=== PATIENT | female | born 1965 | race Caucasian/White ===

== ENCOUNTER → 2016-12-21 | Outpatient (CLI) | payer OTHER ==
[~2016-12-21] MED LIST: ALPR0.25 PO; ALPR0.5T7 PO; BETA15CR37 TOP; CHLO1CAP PO; CHOL50003 PO; CPR500T PO; DEXL60CA PO; DIAZ2TAB2 PO; DIPH25CA79 PO; DIPH25TA82 PO; DZPM2T PO; Diazepam PO; ESTR1TAB24 PO; ESTRADIOL IM; FAMO20TA5 PO; FLUC100T PO; FLUC200T45 PO; FOLI-88 PO; HYOS0.1283 SL; IBUP-2055 PO; LACT1CAP66 PO; LORA-407 PO; LORA0.5T PO; MTP25TSR PO; OMEP40CA36 PO; OMEPRAZOLE; ONDA8TAB9 PO; PARO10TA3 PO; PARO20TA4 PO; PARO20TA5 PO; PARO40TA PO; PNT40TEC PO; PRX10T PO; Paroxetine Hcl PO; Propranolol Hcl PO; QUET25TA PO; SCR1T1 PO; SUCR1TAB PO; TERC20CR VG; TERC45CR VG; [UNRECOGNIZED DRUG - OTHER] PO; vancomycin PO
--- OUTSIDE RECORDS SUMMARY | 2016-12-21 16:35 | XMS REPORT | Continuity of Care Document ---
Author Author [facility] Organization [facility] Address Unknown Phone Unavailable Allergies Active Description Code Type Severity Reaction Onset Reported/Identified Relationship to Patient Clinical Status Yes codeine [id number] Drug Allergy Unknown N/A 12/19/2008 Yes levofloxacin [id number] Drug Allergy Unknown N/A 12/19/2008 Yes Penicillins [id number] Drug Allergy Unknown N/A 12/19/2008 Yes metoclopramide [id number] Drug Allergy Unknown N/A 05/14/2014 Yes codeine [id number] Drug Allergy Unknown PT HAS RECEIVED 09/29/2016 Medications Problems Date Dx Coded Attending Type Code Diagnosis Diagnosed By 02/01/2011 Ot 401.9 HYPERTENSION NOS 02/01/2011 Ot 781.0 ABN INVOLUN MOVEMENT NEC 03/22/2014 BE GREEN MD Ot 723.1 CERVICALGIA 03/22/2014 BE GREEN MD Ot V57.1 PHYSICAL THERAPY NEC 04/22/2014 BE GREEN MD Ot 785.0 TACHYCARDIA NOS 05/16/2014 ROGELIO DIEGO DO Ot 300.00 ANXIETY STATE NOS 05/16/2014 ROGELIO DIEGO DO Ot 401.9 HYPERTENSION NOS 05/16/2014 ROGELIO DIEGO DO Ot 530.10 ESOPHAGITIS NOS 05/16/2014 ROGELIO DIEGO DO Ot 535.50 UNSP GASTRITIS GASTRODUODENITIS W/O ME 05/16/2014 ROGELIO DIEGO DO Ot 535.60 DUODENITIS, WITHOUT MENTION OF HEMORRHAG 05/16/2014 ROGELIO DIEGO DO Ot 599.0 URIN TRACT INFECTION NOS 05/16/2014 ROGELIO DIEGO DO Ot V58.69 OTH MED,LT,CURRENT USE 10/01/2014 Ot 564.1 10/01/2014 Ot V76.12 10/01/2014 Ot V70.0 10/01/2014 Ot 268.9 10/01/2014 Ot 281.0 10/01/2014 Ot 300.4 10/01/2014 Ot 627.2 10/01/2014 Ot V76.12 10/01/2014 Ot V76.12 10/01/2014 Ot 789.00 10/01/2014 Ot 719.41 10/01/2014 Ot 959.2 10/01/2014 Ot E000.8 10/01/2014 Ot E849.0 10/01/2014 Ot E888.9 10/01/2014 Ot 840.4 10/01/2014 Ot E000.8 10/01/2014 Ot E849.0 10/01/2014 Ot E928.9 10/01/2014 JASMIN HUNG, CATARINA Siegel Ot V76.12 10/01/2014 NORMA HUNG, BE Juarez Ot 793.80 10/01/2014 NORMA HUNG, BE Juarez Ot 786.50 10/01/2014 NORMA HUNG, BE Juarez Ot 786.05 10/01/2014 [facility] Ot 786.05 10/01/2014 NORMA HUNG, EB Juarez Ot 721.0 10/01/2014 Ot 785.0 10/01/2014 CATARINA CASTELLANOS MD Ot V76.12 10/15/2014 INDRA DUNAWAY MD Ot 698.9 10/15/2014 INDRA DUNAWAY MD Ot 782.62 10/15/2014 INDRA DUNAWAY MD Ot 787.01 10/15/2014 INDRA DUNAWAY MD Ot 787.91 10/17/2014 INDRA DUNAWAY MD Ot 698.9 10/17/2014 INDRA DUNAWAY MD Ot 782.62 10/17/2014 INRDA DUNAWAY MD Ot 787.01 10/17/2014 INDRA DUNAWAY MD Ot 787.91 10/22/2014 CATARINA CASTELLANOS MD Ot 698.9 10/29/2014 INDRA DUNAWAY MD Ot 698.9 10/29/2014 INDRA DUNAWAY MD Ot 782.62 10/29/2014 INDRA DUNAWAY MD H Ot 787.01 10/29/2014 GUME HUNG, INDRA Renner Ot 787.91 11/08/2014 GUME HUNG, INDRA Renner Ot 698.9 11/08/2014 GUME HUNG, INDRA Renner Ot 782.62 11/08/2014 GUME HUNG, INDRA Renner Ot 787.01 11/08/2014 GUME HUNG, INDRA Renner Ot 787.91 01/09/2015 GUME HUNG, INDRA Renner Ot 698.9 PRURITIC DISORDER NOS 01/09/2015 GUME HUNG, INDRA Renner Ot 782.62 FLUSHING 01/09/2015 GUME HUNG, INDRA Renner Ot 787.01 NAUSEA WITH VOMITING 01/09/2015 GUME HUNG, INDRA Renner Ot 787.91 DIARRHEA 01/22/2015 SHEKHAR HUNG, TANIA Padilla Ot 625.9 01/22/2015 SHEKHAR HUNG, TANIA Padilla Ot 698.9 01/22/2015 SHEKHAR HUNG, TANIA Padilla Ot 782.62 01/22/2015 SHEKHAR HUNG, TANIA Padilla Ot 789.00 02/05/2015 SHEKHAR HUNG, TANIA Padlila Ot 625.9 02/05/2015 SHEKHAR HUNG, TANIA Padilla Ot 698.9 02/05/2015 SHEKHAR HUNG, TANIA Padilla Ot 782.62 02/05/2015 SHEKHAR HUNG, TANIA Padilla Ot 789.00 02/05/2015 Ot 625.9 02/05/2015 Ot 789.00 03/27/2015 Ot V76.12 03/27/2015 Ot V70.0 03/27/2015 Ot 268.9 03/27/2015 Ot 281.0 03/27/2015 Ot 300.4 03/27/2015 Ot 627.2 03/27/2015 Ot V76.12 03/27/2015 Ot V76.12 03/27/2015 Ot 789.00 03/27/2015 Ot 719.41 03/27/2015 Ot 959.2 03/27/2015 Ot E000.8 03/27/2015 Ot E849.0 03/27/2015 Ot E888.9 03/27/2015 Ot 840.4 03/27/2015 Ot E000.8 03/27/2015 Ot E849.0 03/27/2015 Ot E928.9 03/27/2015 JASMIN HUNG, CATARINA Robbin Ot V76.12 03/27/2015 NORMA HUNG, BE Juarez Ot 793.80 03/27/2015 NORMA HUNG, BE Juarez Ot 786.50 03/27/2015 NORMA HUNG, BE Juarez Ot 786.05 03/27/2015 MICHAEL THOMASRJ Ot 786.05 03/27/2015 NORMA HUNG, BE Juarez Ot 721.0 03/27/2015 Ot 785.0 03/27/2015 JASMIN HUNG, CATARINA Robbin Ot V76.12 03/27/2015 JASMIN HUNG, CATARINA Siegel Ot 698.9 03/27/2015 Ot 698.9 03/27/2015 Ot 782.62 03/27/2015 Ot 787.01 03/27/2015 Ot 787.91 03/27/2015 SHEKHAR HUNG, TANIA A Ot 625.9 03/27/2015 SHEKHAR HUNG, TANIA A Ot 698.9 03/27/2015 SHEKHAR HUNG, TANIA A Ot 782.62 03/27/2015 SHEKHAR HUNG, TANIA Padilla Ot 789.00 03/27/2015 Ot 625.9 03/27/2015 Ot 789.00 03/28/2015 SHEKHAR HUGN, TANIA Padilla Ot 721.0 03/28/2015 SHEKHAR HUNG, TANIA A Ot 784.0 03/28/2015 SHEKHAR HUNG, TANIA A Ot 959.01 03/28/2015 SHEKHAR HUNG, TANIA A Ot 959.09 03/28/2015 SHEKHAR HUNG, TANIA A Ot E928.9 03/28/2015 SHEKHAR HUNG, TANIA A Ot 721.0 03/28/2015 SHEKHAR HUNG, TANIA A Ot 784.0 03/28/2015 SHEKHAR HUNG, TANIA Padilla Ot 959.01 03/28/2015 SHEKHAR HUNG, TANIA A Ot 959.09 03/28/2015 SHEKHAR HUNG, TANIA A Ot E928.9 03/28/2015 SHEKHAR HUNG, TANIA A Ot 721.0 03/28/2015 SHEKHAR HUNG, TANIA A Ot 784.0 03/28/2015 SHEKHAR HUNG, TANIA A Ot 959.01 03/28/2015 SHEKHAR HUNG, TANIA A Ot 959.09 03/28/2015 SHEKHAR HUNG, TANIA A Ot E928.9 03/28/2015 SHEKHAR HUNG, TANIA A Ot 721.0 03/28/2015 SHEKHAR HUNG, TANIA A Ot 784.0 03/28/2015 SHEKHAR HUNG, TANIA A Ot 959.01 03/28/2015 SHEKHAR HUNG, TANIA A Ot 959.09 03/28/2015 SHEKHAR HUNG, TANIA A Ot E928.9 04/25/2015 SHEKHAR HUNG, TANIA A Ot 721.0 04/25/2015 SHEKHAR HUNG, TANIA A Ot 784.0 04/25/2015 SHEKHAR HUNG, TANIA A Ot 959.01 04/25/2015 SHEKHAR HUNG, TANIA A Ot 959.09 04/25/2015 SHEKHAR HUNG, TANIA A Ot E928.9 05/16/2015 SHEKHAR HUNG, TANIA A Ot 300.00 05/16/2015 SHEKHAR HUNG, TANIA A Ot 311 05/16/2015 SHEKHAR HUNG, TANIA A Ot 530.81 05/16/2015 SHEKHAR HUNG, TANIA A Ot 558.9 05/16/2015 SHEKHAR HUNG, TANIA A Ot 564.00 05/16/2015 SHEKHAR HUNG, TANIA A Ot 794.5 05/16/2015 SHEKHAR HUNG, TANIA A Ot V12.72 05/16/2015 SHEKHAR HUNG, TANIA A Ot V15.82 05/16/2015 SHEKHAR HUNG, TANIA A Ot V16.3 05/17/2015 SHEKHAR HUNG, TANIA A Ot 300.00 05/17/2015 SHEKHAR HUNG, ATNIA A Ot 311 05/17/2015 SHEKHAR HUNG, TANIA A Ot 530.81 05/17/2015 SHEKHAR HUNG, TANIA A Ot 558.9 05/17/2015 SHEKHAR HUNG, TANIA A Ot 564.00 05/17/2015 SHEKHAR HUNG, TANIA A Ot 794.5 05/17/2015 SHEKHAR HUNG, TANIA A Ot V12.72 05/17/2015 SHEKHAR HUNG, TANIA A Ot V15.82 05/17/2015 SHEKHAR HUNG, TANIA Padilla Ot V16.3 05/18/2015 SHEKHAR HUNG, TANIA Padilla Ot 300.00 05/18/2015 SHEKHAR HUNG, TANIA Padilla Ot 311 05/18/2015 SHEKHAR HUNG, TANIA Padilla Ot 530.81 05/18/2015 SHEKHAR HUNG, TANIA Padilla Ot 558.9 05/18/2015 SHEKHAR HUNG, TANIA Padilla Ot 564.00 05/18/2015 SHEKHAR HUNG, TANIA Padilla Ot 794.5 05/18/2015 SHEKHAR HUNG, TANIA Padilla Ot V12.72 05/18/2015 SHEKHAR HUNG, TANIA Padilla Ot V15.82 05/18/2015 SHEKHAR HUNG, TANIA Padilla Ot V16.3 05/18/2015 SHEKHAR HUNG, TANIA Padilla Ot 300.00 05/18/2015 SHEKHAR HUNG, TANIA Padilla Ot 300.01 PANIC DISORDER WITHOUT AGORAPHOBIA 05/18/2015 SHEKHAR HUNG, TANIA Padilla Ot 311 DEPRESSIVE DISORDER NEC 05/18/2015 SHEKHAR HUNG, TANIA Padilla Ot 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 05/18/2015 SHEKHAR HUNG, TANIA Padilla Ot 530.81 ESOPHAGEAL REFLUX 05/18/2015 SHEKHAR HUNG, TANIA Padilla Ot 536.8 STOMACH FUNCTION DIS NEC 05/18/2015 SHEKHAR HUNG, TANIA Padilla Ot 558.9 NONINF GASTROENTERIT NEC 05/18/2015 SHEKHAR HUNG, TANIA Padilla Ot 564.00 UNSPEC CONSTIPATION 05/18/2015 SHEKHAR HUNG, TANIA Padilla Ot 616.10 VAGINITIS NOS 05/18/2015 SHEKHAR HUNG, TANIA Padilla Ot 794.5 ABN THYROID FUNCT STUDY 05/18/2015 SHEKHAR HUNG, TANIA Padilla Ot V12.72 PERSONAL HISTORY OF COLONIC POLYPS 05/18/2015 SHEKHAR HUNG, TANIA Padilla Ot V15.82 HISTORY OF TOBACCO USE 05/18/2015 SHEKHAR HUNG, TANIA Padilla Ot V16.0 FAMILY HX-GI MALIGNANCY 05/18/2015 SHEKHAR HUNG, TANIA Padilla Ot V16.3 07/22/2015 Ot 268.9 07/22/2015 Ot 281.0 07/22/2015 Ot 300.4 07/22/2015 Ot 627.2 07/22/2015 Ot V76.12 07/22/2015 Ot V76.12 07/22/2015 Ot 789.00 07/22/2015 Ot 719.41 07/22/2015 Ot 959.2 07/22/2015 Ot E000.8 07/22/2015 Ot E849.0 07/22/2015 Ot E888.9 07/22/2015 Ot 840.4 07/22/2015 Ot E000.8 07/22/2015 Ot E849.0 07/22/2015 Ot E928.9 07/22/2015 JASMIN HUNG, CATARINA Siegel Ot V76.12 07/22/2015 NORMA HUNG, BE Juarez Ot 793.80 07/22/2015 NORMA HUNG, BE Juarez Ot 786.50 07/22/2015 NORMA HUNG, BE Juarez Ot 786.05 07/22/2015 RJ RODRIGUEZ DO Ot 786.05 07/22/2015 NORMA HUNG, BE Juarez Ot 721.0 07/22/2015 Ot 785.0 07/22/2015 JASMIN HUNG, CATARINA Siegel Ot V76.12 07/22/2015 JASMIN HUNG, CATARINA Siegel Ot 698.9 07/22/2015 Ot 698.9 07/22/2015 Ot 782.62 07/22/2015 Ot 787.01 07/22/2015 Ot 787.91 07/22/2015 SHEKHAR HUNG, TANIA Padilla Ot 625.9 07/22/2015 SHEKHAR HUNG, TANIA Padilla Ot 698.9 07/22/2015 SHEKHAR HUNG, TANIA A Ot 782.62 07/22/2015 SHEKHAR HUNG, TANIA A Ot 789.00 07/22/2015 Ot 625.9 07/22/2015 Ot 789.00 07/22/2015 SHEKHAR HUNG, TANIA Padilla Ot 721.0 07/22/2015 SHEKHAR HUNG, TANIA Padilla Ot 784.0 07/22/2015 SHEKHAR HUNG, TANIA Padilla Ot 959.01 07/22/2015 SHEKHAR HUNG, TANIA Padilla Ot 959.09 07/22/2015 SHEKHAR HUNG, TANIA Padilla Ot E928.9 07/29/2015 SHEKHAR HUNG, TANIA Padilla Ot 276.51 07/29/2015 SHEKHAR UHNG, TANIA A Ot 300.00 07/29/2015 SHEKHAR HUNG, TANIA A Ot 311 07/29/2015 SHEKHAR HUNG, TANIA A Ot 530.81 07/29/2015 SHEKHAR HUNG, TANIA A Ot 558.9 07/29/2015 SHEKHAR HUNG, TANIA A Ot 698.9 07/30/2015 SHEKHAR HUNG, TANIA A Ot 276.51 07/30/2015 SHEKHAR HUNG, TANIA A Ot 300.00 07/30/2015 SHEKHAR HUNG, TANIA A Ot 311 07/30/2015 SHEKHAR HUNG, TANIA A Ot 530.81 07/30/2015 SHEKHAR HUNG, TANIA A Ot 558.9 07/30/2015 SHEKHAR HUNG, TANIA A Ot 698.9 07/31/2015 SHEKHAR HUNG, TANIA A Ot 276.51 07/31/2015 SHEKHAR HUNG, TANIA A Ot 300.00 07/31/2015 SHEKHAR HUNG, TANIA A Ot 311 07/31/2015 SHEKHAR HUNG, TANIA A Ot 530.81 07/31/2015 SHEKHAR HUNG, TANIA A Ot 558.9 07/31/2015 SHEKHAR HUNG, TANIA A Ot 698.9 08/01/2015 SHEKHAR HUNG, TANIA A Ot 276.51 08/01/2015 SHEKHAR HUNG, TANIA A Ot 300.00 08/01/2015 SHEKHAR HUNG, TANIA A Ot 311 08/01/2015 SHEKHAR HUNG, TANIA A Ot 530.81 08/01/2015 SHEKHAR HUNG, TANIA A Ot 558.9 08/01/2015 SHEKHAR HUNG, TANIA A Ot 698.9 08/06/2015 CATARINA CASTELLANOS MD Ot V76.12 08/07/2015 SHEKHAR HUNG, TANIA A Ot A04.7 ENTEROCOLITIS DUE TO CLOSTRIDIUM DIFFICI 08/07/2015 SHEKHAR HUNG, TANIA A Ot E86.0 DEHYDRATION 08/07/2015 SHEKHAR HUNG, TANIA A Ot F32.9 MAJOR DEPRESSIVE DISORDER, SINGLE EPISOD 08/07/2015 SHEKHAR HUNG, TANIA A Ot F41.9 ANXIETY DISORDER, UNSPECIFIED 08/07/2015 SHEKHAR HUNG, TANIA A Ot K21.9 GASTRO-ESOPHAGEAL REFLUX DISEASE WITHOUT 08/07/2015 SHEKHAR HUNG, TANIA Padilla Ot K56.60 UNSPECIFIED INTESTINAL OBSTRUCTION 08/07/2015 SHEKHAR HUNG, TANIA Padilla Ot L29.9 PRURITUS, UNSPECIFIED 08/21/2015 YANELI HUNG, SANCHEZ Padilla Ot R19.7 08/23/2015 SANCHEZ GROVES MD Ot R19.7 09/06/2015 SHEKHAR HUNG, TANIA Padilla Ot I82.409 09/06/2015 TANIA CORRIGAN MD Ot I82.409 10/29/2015 SHEKHAR HUNG, TANIA Padilla Ot E04.1 10/29/2015 SHEKHAR HUNG, TANIA Padilla Ot R94.6 11/11/2015 Ot V76.12 11/11/2015 Ot V76.12 11/11/2015 Ot 789.00 11/11/2015 Ot 719.41 11/11/2015 Ot 959.2 11/11/2015 Ot E000.8 11/11/2015 Ot E849.0 11/11/2015 Ot E888.9 11/11/2015 Ot 840.4 11/11/2015 Ot E000.8 11/11/2015 Ot E849.0 11/11/2015 Ot E928.9 11/11/2015 JASMIN HUNG, CATARINA Siegel Ot V76.12 11/11/2015 NORMA HUNG, BE Juarez Ot 793.80 11/11/2015 NORMA HUNG, BE Juarez Ot 786.50 11/11/2015 NORMA HUNG, BE Juarez Ot 786.05 11/11/2015 [facility] Ot 786.05 11/11/2015 NORMA HUNG, BE Juarez Ot 721.0 11/11/2015 Ot 785.0 11/11/2015 JASMIN HUNG, CATARINA Siegel Ot V76.12 11/11/2015 JASMIN HUNG, CATARINA Siegel Ot 698.9 11/11/2015 Ot 698.9 11/11/2015 Ot 782.62 11/11/2015 Ot 787.01 11/11/2015 Ot 787.91 11/11/2015 SHEKHAR HUNG, TANIA Padilla Ot 625.9 11/11/2015 SHEKHAR HUNG, TANIA Padilla Ot 698.9 11/11/2015 SHEKHAR HUNG, TANIA A Ot 782.62 11/11/2015 SHEKHAR HUNG, TANIA A Ot 789.00 11/11/2015 Ot 625.9 11/11/2015 Ot 789.00 11/11/2015 SHEKHAR HUNG, TANIA A Ot 721.0 11/11/2015 SHEKHAR HUNG, TANIA A Ot 784.0 11/11/2015 SHEKHAR HUNG, TANIA A Ot 959.01 11/11/2015 SHEKHAR HUNG, TANIA A Ot 959.09 11/11/2015 SHEKHAR HUNG, TANIA A Ot E928.9 11/11/2015 JASMIN HUNG, CATARINA Siegel Ot V76.12 11/11/2015 YANELI HUNG, SANCHEZ Padilla Ot R19.7 11/11/2015 SHEKHAR HUNG, TANIA A Ot I82.409 11/11/2015 SHEKHAR HUNG, TANIA A Ot E04.1 11/11/2015 SHEKHAR HUNG, TANIA A Ot R94.6 11/18/2015 YANELI HUNG, SANCHEZ Padilla Ot R19.7 DIARRHEA, UNSPECIFIED 01/01/2016 Ot V76.12 01/01/2016 Ot V76.12 01/01/2016 Ot 789.00 01/01/2016 Ot 719.41 01/01/2016 Ot 959.2 01/01/2016 Ot E000.8 01/01/2016 Ot E849.0 01/01/2016 Ot E888.9 01/01/2016 Ot 840.4 01/01/2016 Ot E000.8 01/01/2016 Ot E849.0 01/01/2016 Ot E928.9 01/01/2016 JASMIN HUNG, CATARINA Siegel Ot V76.12 01/01/2016 NORMA HUNG, BE Juarez Ot 793.80 01/01/2016 NORMA HUNG, BE Juarez Ot 786.50 01/01/2016 NORMA HUNG, BE Juarez Ot 786.05 01/01/2016 RJ RODRIGUEZ DO Ot 786.05 01/01/2016 NORMA HUNG, BE Juarez Ot 721.0 01/01/2016 Ot 785.0 01/01/2016 JASMIN HUNG, CATARINA Siegel Ot V76.12 01/01/2016 JASMIN HUNG, CATARINA G Ot 698.9 01/01/2016 Ot 698.9 01/01/2016 Ot 782.62 01/01/2016 Ot 787.01 01/01/2016 Ot 787.91 01/01/2016 SHEKHAR HUNG, TANIA Padilla Ot 625.9 01/01/2016 SHEKHAR HUNG, TANIA A Ot 698.9 01/01/2016 SHEKHAR HUNG, TANIA A Ot 782.62 01/01/2016 SHEKHAR HUNG, TANIA A Ot 789.00 01/01/2016 Ot 625.9 01/01/2016 Ot 789.00 01/01/2016 SHEKHAR HUNG, TANIA A Ot 721.0 01/01/2016 SHEKHAR HUNG, TANIA A Ot 784.0 01/01/2016 SHEKHAR HUNG, TANIA A Ot 959.01 01/01/2016 SHEKHAR HUNG, TANIA A Ot 959.09 01/01/2016 SHEKHAR HUNG, TANIA A Ot E928.9 01/01/2016 JASMIN HUNG, CATARINA Siegel Ot V76.12 01/01/2016 SHEKHAR HUNG, TANIA A Ot I82.409 01/01/2016 SHEKHAR HUNG, TANIA A Ot E04.1 01/01/2016 SHEKHAR HUNG, TANIA A Ot R94.6 01/01/2016 YANELI HUNG, SANCHEZ Padilla Ot R19.7 01/01/2016 YANELI HUNG, SANCHEZ Padilla Ot R19.7 03/19/2016 Ot V76.12 OTH SCREEN MAMMO-MALIGN NEOPLASM OF [place] 03/19/2016 Ot V76.12 OTH SCREEN MAMMO-MALIGN NEOPLASM OF [place] 03/19/2016 Ot 789.00 ABDOMINAL PAIN, UNSPECIFIED SITE 03/19/2016 Ot 719.41 JOINT PAIN-SHLDER 03/19/2016 Ot 959.2 SHLDR/UPPER ARM INJ NOS 03/19/2016 Ot E000.8 OTHER EXTERNAL CAUSE STATUS 03/19/2016 Ot E849.0 ACCIDENT IN HOME 03/19/2016 Ot E888.9 FALL NOS 03/19/2016 Ot 840.4 SPRAIN ROTATOR CUFF 03/19/2016 Ot E000.8 OTHER EXTERNAL CAUSE STATUS 03/19/2016 Ot E849.0 ACCIDENT IN HOME 03/19/2016 Ot E928.9 ACCIDENT NOS 03/19/2016 CATARINA CASTELLANOS MD Ot V76.12 OTH SCREEN MAMMO-MALIGN NEOPLASM OF [place] 03/19/2016 NORMA HUNG, BE Juarez Ot 793.80 UNSPEC ABNORMAL MAMMOGRAM 03/19/2016 NORMA HUNG, BE Larry Ot 786.50 CHEST PAIN NOS 03/19/2016 BE GREEN MD Ot 786.05 SHORTNESS OF BREATH 03/19/2016 RJ RODRIGUEZ DO Ot 786.05 SHORTNESS OF BREATH 03/19/2016 BE GREEN MD Ot 721.0 CERVICAL SPONDYLOSIS 03/19/2016 Ot 785.0 TACHYCARDIA NOS 03/19/2016 CATARINA CASTELLANOS MD Ot V76.12 OTH SCREEN MAMMO-MALIGN NEOPLASM OF [place] 03/19/2016 CATARINA CASTELLANOS MD Ot 698.9 PRURITIC DISORDER NOS 03/19/2016 Ot 698.9 PRURITIC DISORDER NOS 03/19/2016 Ot 782.62 FLUSHING 03/19/2016 Ot 787.01 NAUSEA WITH VOMITING 03/19/2016 Ot 787.91 DIARRHEA 03/19/2016 SHEKHAR HUNG, TANIA Padilla Ot 625.9 FEM GENITAL SYMPTOMS NOS 03/19/2016 SHEKHAR HUNG, TANIA Padilla Ot 698.9 PRURITIC DISORDER NOS 03/19/2016 TANIA CORRIGAN MD Ot 782.62 FLUSHING 03/19/2016 TANIA CORRIGAN MD Ot 789.00 ABDOMINAL PAIN, UNSPECIFIED SITE 03/19/2016 Ot 625.9 FEM GENITAL SYMPTOMS NOS 03/19/2016 Ot 789.00 ABDOMINAL PAIN, UNSPECIFIED SITE 03/19/2016 TANIA CORRIGAN MD Ot 721.0 CERVICAL SPONDYLOSIS 03/19/2016 TANIA CORRIGAN MD Ot 784.0 HEADACHE 03/19/2016 TANIA CORRIGAN MD Ot 959.01 HEAD INJURY, NOS 03/19/2016 TANIA CORRIGAN MD Ot 959.09 INJURY OF FACE AND NECK 03/19/2016 TANIA CORRIGAN MD Ot E928.9 ACCIDENT NOS 03/19/2016 CATARINA CASTELLANOS MD Ot V76.12 OTH SCREEN MAMMO-MALIGN NEOPLASM OF [place] 03/19/2016 SHEKHAR HUNG, TANIA Padilla Ot I82.409 ACUTE EMBOLISM AND THOMBOS UNSP DEEP VN 03/19/2016 SHEKHAR HUNG, TANIA Padilla Ot E04.1 NONTOXIC SINGLE THYROID NODULE 03/19/2016 TANIA CORRIGAN MD Ot R94.6 ABNORMAL RESULTS OF THYROID FUNCTION MICHAEL 03/19/2016 SANCHEZ GROVES MD Ot R19.7 DIARRHEA, UNSPECIFIED 03/19/2016 SANCHEZ GROVES MD Ot R19.7 DIARRHEA, UNSPECIFIED 03/20/2016 CUAUHTEMOC DO, SONALI K Ot F41.9 ANXIETY DISORDER, UNSPECIFIED 03/20/2016 CUAUHTEMOC DO, SONALI K Ot K58.9 IRRITABLE BOWEL SYNDROME WITHOUT DIARRHE 03/20/2016 CUAUHTEMOC DO, SONALI K Ot R10.13 EPIGASTRIC PAIN 03/20/2016 CUAUHTEMOC DO, SONALI K Ot R11.2 NAUSEA WITH VOMITING, UNSPECIFIED 03/20/2016 CUAUHTEMOC DO, SONALI K Ot F41.9 ANXIETY DISORDER, UNSPECIFIED 03/20/2016 CUAUHTEMOC DO, SONALI K Ot K58.9 IRRITABLE BOWEL SYNDROME WITHOUT DIARRHE 03/20/2016 CUAUHTEMOC DO, SONALI K Ot R10.13 EPIGASTRIC PAIN 03/20/2016 CUAUHTEMOC DO, SONALI K Ot R11.2 NAUSEA WITH VOMITING, UNSPECIFIED 06/04/2016 Ot V76.12 OTH SCREEN MAMMO-MALIGN NEOPLASM OF [place] 06/04/2016 Ot 789.00 ABDOMINAL PAIN, UNSPECIFIED SITE 06/04/2016 Ot 719.41 JOINT PAIN-SHLDER 06/04/2016 Ot 959.2 SHLDR/UPPER ARM INJ NOS 06/04/2016 Ot E000.8 OTHER EXTERNAL CAUSE STATUS 06/04/2016 Ot E849.0 ACCIDENT IN HOME 06/04/2016 Ot E888.9 FALL NOS 06/04/2016 Ot 840.4 SPRAIN ROTATOR CUFF 06/04/2016 Ot E000.8 OTHER EXTERNAL CAUSE STATUS 06/04/2016 Ot E849.0 ACCIDENT IN HOME 06/04/2016 Ot E928.9 ACCIDENT NOS 06/04/2016 JASMIN HUNG, CATARINA Siegel Ot V76.12 OTH SCREEN MAMMO-MALIGN NEOPLASM OF [place] 06/04/2016 BE GREEN MD Ot 793.80 UNSPEC ABNORMAL MAMMOGRAM 06/04/2016 BE GREEN MD Ot 786.50 CHEST PAIN NOS 06/04/2016 BE GREEN MD Ot 786.05 SHORTNESS OF BREATH 06/04/2016 RJ RODRIGUEZ DO Ot 786.05 SHORTNESS OF BREATH 06/04/2016 BE GREEN MD Ot 721.0 CERVICAL SPONDYLOSIS 06/04/2016 Ot 785.0 TACHYCARDIA NOS 06/04/2016 CATARINA CASTELLANOS MD, Ot V76.12 OTH SCREEN MAMMO-MALIGN NEOPLASM OF [place] 06/04/2016 CATARINA CASTELLANOS MD Ot 698.9 PRURITIC DISORDER NOS 06/04/2016 Ot 698.9 PRURITIC DISORDER NOS 06/04/2016 Ot 782.62 FLUSHING 06/04/2016 Ot 787.01 NAUSEA WITH VOMITING 06/04/2016 Ot 787.91 DIARRHEA 06/04/2016 TANIA CORRIGAN MD Ot 625.9 FEM GENITAL SYMPTOMS NOS 06/04/2016 TANIA CORRIGAN MD Ot 698.9 PRURITIC DISORDER NOS 06/04/2016 TANIA CORRIGAN MD Ot 782.62 FLUSHING 06/04/2016 TANIA CORRIGAN MD Ot 789.00 ABDOMINAL PAIN, UNSPECIFIED SITE 06/04/2016 Ot 625.9 FEM GENITAL SYMPTOMS NOS 06/04/2016 Ot 789.00 ABDOMINAL PAIN, UNSPECIFIED SITE 06/04/2016 TANIA CORRIGAN MD Ot 721.0 CERVICAL SPONDYLOSIS 06/04/2016 TANIA CORRIGAN MD Ot 784.0 HEADACHE 06/04/2016 TANIA CORRIGAN MD Ot 959.01 HEAD INJURY, NOS 06/04/2016 TANIA CORRIGAN MD Ot 959.09 INJURY OF FACE AND NECK 06/04/2016 TANIA CORRIGAN MD Ot E928.9 ACCIDENT NOS 06/04/2016 CATARINA CASTELLANOS MD Ot V76.12 OTH SCREEN MAMMO-MALIGN NEOPLASM OF [place] 06/04/2016 TANIA CORRIGAN MD Ot I82.409 ACUTE EMBOLISM AND THOMBOS UNSP DEEP VN 06/04/2016 TANIA CORRIGAN MD Ot E04.1 NONTOXIC SINGLE THYROID NODULE 06/04/2016 SHEKHAR HUNG, TANIA Padilla Ot R94.6 ABNORMAL RESULTS OF THYROID FUNCTION MICHAEL 06/04/2016 YANELI HUNG, SANCHEZ Padilla Ot R19.7 DIARRHEA, UNSPECIFIED 06/04/2016 YANELI HUNG, SANCHEZ Padilla Ot R19.7 DIARRHEA, UNSPECIFIED 06/05/2016 YANELI HUNG, SANCHEZ Padilla Ot K59.00 CONSTIPATION, UNSPECIFIED 06/17/2016 YANELI HUNG, SANCHEZ Padilla Ot K59.00 CONSTIPATION, UNSPECIFIED 08/04/2016 Ot V76.12 OTH SCREEN MAMMO-MALIGN NEOPLASM OF [place] 08/04/2016 Ot 789.00 ABDOMINAL PAIN, UNSPECIFIED SITE 08/04/2016 Ot 719.41 JOINT PAIN-SHLDER 08/04/2016 Ot 959.2 SHLDR/UPPER ARM INJ NOS 08/04/2016 Ot E000.8 OTHER EXTERNAL CAUSE STATUS 08/04/2016 Ot E849.0 ACCIDENT IN HOME 08/04/2016 Ot E888.9 FALL NOS 08/04/2016 Ot 840.4 SPRAIN ROTATOR CUFF 08/04/2016 Ot E000.8 OTHER EXTERNAL CAUSE STATUS 08/04/2016 Ot E849.0 ACCIDENT IN HOME 08/04/2016 Ot E928.9 ACCIDENT NOS 08/04/2016 CATARINA CASTELLANOS MD Ot V76.12 OTH SCREEN MAMMO-MALIGN NEOPLASM OF [place] 08/04/2016 BE GREEN MD Ot 793.80 UNSPEC ABNORMAL MAMMOGRAM 08/04/2016 BE GREEN MD Ot 786.50 CHEST PAIN NOS 08/04/2016 BE GREEN MD Ot 786.05 SHORTNESS OF BREATH 08/04/2016 RJ RODRIGUEZ DO Ot 786.05 SHORTNESS OF BREATH 08/04/2016 BE GREEN MD Ot 721.0 CERVICAL SPONDYLOSIS 08/04/2016 Ot 785.0 TACHYCARDIA NOS 08/04/2016 CATARINA CASTELLANOS MD Ot V76.12 OTH SCREEN MAMMO-MALIGN NEOPLASM OF [place] 08/04/2016 CATARINA CASTELLANOS MD Ot 698.9 PRURITIC DISORDER NOS 08/04/2016 Ot 698.9 PRURITIC DISORDER NOS 08/04/2016 Ot 782.62 FLUSHING 08/04/2016 Ot 787.01 NAUSEA WITH VOMITING 08/04/2016 Ot 787.91 DIARRHEA 08/04/2016 SHEKHAR HUNG, TANIA Padilla Ot 625.9 FEM GENITAL SYMPTOMS NOS 08/04/2016 SHEKHAR HUNG, TANIA Padilla Ot 698.9 PRURITIC DISORDER NOS 08/04/2016 TANIA CORRIGAN MD Ot 782.62 FLUSHING 08/04/2016 TANIA CORRIGAN MD Ot 789.00 ABDOMINAL PAIN, UNSPECIFIED SITE 08/04/2016 Ot 625.9 FEM GENITAL SYMPTOMS NOS 08/04/2016 Ot 789.00 ABDOMINAL PAIN, UNSPECIFIED SITE 08/04/2016 TANIA CORRIGAN MD Ot 721.0 CERVICAL SPONDYLOSIS 08/04/2016 TANIA CORRIGAN MD Ot 784.0 HEADACHE 08/04/2016 TANIA CORRIGAN MD Ot 959.01 HEAD INJURY, NOS 08/04/2016 SHEKHAR HUNG, TANIA Padilla Ot 959.09 INJURY OF FACE AND NECK 08/04/2016 TANIA CORRIGAN MD Ot E928.9 ACCIDENT NOS 08/04/2016 CATARINA CASTELLANOS MD Ot V76.12 OTH SCREEN MAMMO-MALIGN NEOPLASM OF [place] 08/04/2016 TANIA CORRIGAN MD Ot I82.409 ACUTE EMBOLISM AND THOMBOS UNSP DEEP VN 08/04/2016 TANIA CORRIGAN MD Ot E04.1 NONTOXIC SINGLE THYROID NODULE 08/04/2016 TANIA CORRIGAN MD Ot R94.6 ABNORMAL RESULTS OF THYROID FUNCTION MICHAEL 08/04/2016 SANCHEZ GROVES MD Ot R19.7 DIARRHEA, UNSPECIFIED 08/04/2016 SANCHEZ GROVES MD Ot R19.7 DIARRHEA, UNSPECIFIED 08/04/2016 SANCHEZ GROVES MD Ot K59.00 CONSTIPATION, UNSPECIFIED 08/05/2016 CATARINA CASTELLANOS MD Ot Z12.31 ENCNTR SCREEN MAMMOGRAM FOR MALIGNANT NE 09/26/2016 Ot V76.12 OTH SCREEN MAMMO-MALIGN NEOPLASM OF [place] 09/26/2016 Ot 789.00 ABDOMINAL PAIN, UNSPECIFIED SITE 09/26/2016 Ot 719.41 JOINT PAIN-SHLDER 09/26/2016 Ot 959.2 SHLDR/UPPER ARM INJ NOS 09/26/2016 Ot E000.8 OTHER EXTERNAL CAUSE STATUS 09/26/2016 Ot E849.0 ACCIDENT IN HOME 09/26/2016 Ot E888.9 FALL NOS 09/26/2016 Ot 840.4 SPRAIN ROTATOR CUFF 09/26/2016 Ot E000.8 OTHER EXTERNAL CAUSE STATUS 09/26/2016 Ot E849.0 ACCIDENT IN HOME 09/26/2016 Ot E928.9 ACCIDENT NOS 09/26/2016 CATARINA CASTELLANOS MD Ot V76.12 OTH SCREEN MAMMO-MALIGN NEOPLASM OF [place] 09/26/2016 NORMA HUNG, BE Juarez Ot 793.80 UNSPEC ABNORMAL MAMMOGRAM 09/26/2016 NORMA HUNG, BE Juarez Ot 786.50 CHEST PAIN NOS 09/26/2016 NORMA HUNG, BE Juarez Ot 786.05 SHORTNESS OF BREATH 09/26/2016 RJ RODRIGUEZ DO Ot 786.05 SHORTNESS OF BREATH 09/26/2016 NROMA HUNG, BE Juarez Ot 721.0 CERVICAL SPONDYLOSIS 09/26/2016 Ot 785.0 TACHYCARDIA NOS 09/26/2016 CATARINA CASTELLANOS MD Ot V76.12 OTH SCREEN MAMMO-MALIGN NEOPLASM OF [place] 09/26/2016 CATARINA CASTELLANOS MD Ot 698.9 PRURITIC DISORDER NOS 09/26/2016 Ot 698.9 PRURITIC DISORDER NOS 09/26/2016 Ot 782.62 FLUSHING 09/26/2016 Ot 787.01 NAUSEA WITH VOMITING 09/26/2016 Ot 787.91 DIARRHEA 09/26/2016 TANIA CORRIGAN MD Ot 625.9 FEM GENITAL SYMPTOMS NOS 09/26/2016 TANIA CORRIGAN MD Ot 698.9 PRURITIC DISORDER NOS 09/26/2016 TANIA CORRIGAN MD Ot 782.62 FLUSHING 09/26/2016 TANIA CORRIGAN MD Ot 789.00 ABDOMINAL PAIN, UNSPECIFIED SITE 09/26/2016 Ot 625.9 FEM GENITAL SYMPTOMS NOS 09/26/2016 Ot 789.00 ABDOMINAL PAIN, UNSPECIFIED SITE 09/26/2016 TANIA CORRIGAN MD Ot 721.0 CERVICAL SPONDYLOSIS 09/26/2016 TANIA CORRIGAN MD Ot 784.0 HEADACHE 09/26/2016 SHEKHAR HUNG, TANIA Padilla Ot 959.01 HEAD INJURY, NOS 09/26/2016 SHEKHAR HUNG, TANIA Padilla Ot 959.09 INJURY OF FACE AND NECK 09/26/2016 TANIA CORRIGAN MD Ot E928.9 ACCIDENT NOS 09/26/2016 JASMIN HUNG, CATARINA Siegel Ot V76.12 OTH SCREEN MAMMO-MALIGN NEOPLASM OF [place] 09/26/2016 TANIA CORRIGAN MD Ot I82.409 ACUTE EMBOLISM AND THOMBOS UNSP DEEP VN 09/26/2016 TANIA CORRIGAN MD Ot E04.1 NONTOXIC SINGLE THYROID NODULE 09/26/2016 TANIA CORRIGAN MD Ot R94.6 ABNORMAL RESULTS OF THYROID FUNCTION MICHAEL 09/26/2016 SANCHEZ GROVES MD Ot R19.7 DIARRHEA, UNSPECIFIED 09/26/2016 SANCHEZ GROVES MD Ot R19.7 DIARRHEA, UNSPECIFIED 09/26/2016 SANCHEZ GROVES MD Ot K59.00 CONSTIPATION, UNSPECIFIED 09/26/2016 JASMIN HUNG, CATARINA Siegel Ot Z12.31 ENCNTR SCREEN MAMMOGRAM FOR MALIGNANT NE 09/29/2016 Ot 785.0 TACHYCARDIA NOS 09/29/2016 Ot 698.9 PRURITIC DISORDER NOS 09/29/2016 Ot 782.62 FLUSHING 09/29/2016 Ot 787.01 NAUSEA WITH VOMITING 09/29/2016 Ot 787.91 DIARRHEA 09/29/2016 SANCHEZ GROVES MD Ot R19.7 DIARRHEA, UNSPECIFIED 10/01/2016 TANIA CORRIGAN MD Ot E86.0 DEHYDRATION 10/01/2016 TANIA CORRIGAN MD Ot F41.9 ANXIETY DISORDER, UNSPECIFIED 10/01/2016 TANIA CORRIGAN MD Ot K21.9 GASTRO-ESOPHAGEAL REFLUX DISEASE WITHOUT 10/01/2016 TANIA CORRIGAN MD Ot R10.12 LEFT UPPER QUADRANT PAIN 10/01/2016 TANIA CORRIGAN MD Ot R10.13 EPIGASTRIC PAIN 10/01/2016 TANIA CORRIGAN MD Ot R11.2 NAUSEA WITH VOMITING, UNSPECIFIED 10/01/2016 TANIA CORRIGAN MD Ot Z87.891 PERSONAL HISTORY OF NICOTINE DEPENDENCE 10/01/2016 TANIA CORRIGAN MD Ot E86.0 DEHYDRATION 10/01/2016 TANIA CORRIGAN MD Ot F41.9 ANXIETY DISORDER, UNSPECIFIED 10/01/2016 TANIA CORRIGAN MD Ot K21.9 GASTRO-ESOPHAGEAL REFLUX DISEASE WITHOUT 10/01/2016 TANIA CORRIGAN MD Ot R10.12 LEFT UPPER QUADRANT PAIN 10/01/2016 TANIA CORRIGAN MD Ot R10.13 EPIGASTRIC PAIN 10/01/2016 TANIA CORRIGAN MD Ot R11.2 NAUSEA WITH VOMITING, UNSPECIFIED 10/01/2016 TANIA CORRIGAN MD Ot Z87.891 PERSONAL HISTORY OF NICOTINE DEPENDENCE Procedures Code Description Performed By Performed On 45.25 CLOSED ENDOSCOPIC BIOPSY OF LARGE INTEST 05/16/2015 Results Test Result Range Complete blood count (CBC) with automated white blood cell (WBC) differential - 09/26/16 12:56 Blood leukocytes automated count (number/volume) 8.6 10*3/ uL 4.3-11.0 Blood erythrocytes automated count (number/volume) 4.53 10*6 /uL 4.35-5.85 Venous blood hemoglobin measurement (mass/volume) 13.2 g/dL 11.5-16.0 Blood hematocrit (volume fraction) 38 % 35-52 Automated erythrocyte mean corpuscular volume 85 [foz_us] 80-99 Automated erythrocyte mean corpuscular hemoglobin (mass per erythrocyte) 29 pg 25-34 Automated erythrocyte mean corpuscular hemoglobin concentration measurement ( mass/volume) 34 g/dL 32-36 Automated erythrocyte distribution width ratio 12.2 % 10.0-14.5 Automated blood platelet count (count/volume) 265 10*3/uL 130-400 Automated blood platelet mean volume measurement 11.7 [foz_ us] 7.4-10.4 Automated blood neutrophils/100 leukocytes 74 % 42-75 Automated blood lymphocytes/100 leukocytes 22 % 12-44 Blood monocytes/100 leukocytes 4 % 0-12 Automated blood eosinophils/100 leukocytes 0 % 0-10 Automated blood basophils/100 leukocytes 0 % 0-10 Blood neutrophils automated count (number/volume) 6.3 10*3 1.8-7.8 Blood lymphocytes automated count (number/volume) 1.9 10*3 1.0-4.0 Blood monocytes automated count (number/volume) 0.4 10*3 0.0-1.0 Automated eosinophil count 0.0 10*3/uL 0.0-0.3 Automated blood basophil count (count/volume) 0.0 10*3/uL 0.0-0.1 Comprehensive metabolic panel - 09/26/16 12:56 Serum or plasma sodium measurement (moles/volume) 131 mmol/ L 135-145 Serum or plasma potassium measurement (moles/volume) 3.9 mmol/L 3.6-5.0 Serum or plasma chloride measurement (moles/volume) 99 mmol/ L 98-107 Carbon dioxide 22 mmol/L 21-32 Serum or plasma anion gap determination (moles/volume) 10 mmol/L 5-14 Serum or plasma urea nitrogen measurement (mass/volume) 9 mg /dL 7-18 Serum or plasma creatinine measurement (mass/volume) 0.80 mg /dL 0.60-1.30 Serum or plasma urea nitrogen/creatinine mass ratio 11 NRG Serum or plasma creatinine measurement with calculation of estimated glomerular filtration rate > NRG Serum or plasma glucose measurement (mass/volume) 103 mg/dL 70-105 Serum or plasma calcium measurement (mass/volume) 8.8 mg/dL 8.5-10.1 Serum or plasma total bilirubin measurement (mass/volume) 0.4 mg/dL 0.1-1.0 Serum or plasma alkaline phosphatase measurement (enzymatic activity/volume) 57 U/L 40-136 Serum or plasma aspartate aminotransferase measurement (enzymatic activity/ volume) 18 U/L 5-34 Serum or plasma alanine aminotransferase measurement (enzymatic activity/volume ) 16 U/L 0-55 Serum or plasma protein measurement (mass/volume) 6.3 g/dL 6.4-8.2 Serum or plasma albumin measurement (mass/volume) 4.1 g/dL 3.2-4.5 Magnesium - 09/26/16 12:56 Magnesium 1.6 mg/dL 1.8-2.4 Serum or plasma amylase measurement (enzymatic activity/volume) - 09/26/16 12: 56 Serum or plasma amylase measurement (enzymatic activity/volume) 40 U/L 25-125 Lipase - 09/26/16 12:56 Lipase 8 U/L 8-78 Serum or plasma C reactive protein measurement (mass/volume) - 09/26/16 12:56 Serum or plasma C reactive protein measurement (mass/volume) 0.28 mg/dL 0.00-0.50 Complete blood count (CBC) with automated white blood cell (WBC) differential - 09/27/16 04:05 Blood leukocytes automated count (number/volume) 8.2 10*3/ uL 4.3-11.0 Blood erythrocytes automated count (number/volume) 4.10 10*6 /uL 4.35-5.85 Venous blood hemoglobin measurement (mass/volume) 11.9 g/dL 11.5-16.0 Blood hematocrit (volume fraction) 35 % 35-52 Automated erythrocyte mean corpuscular volume 86 [foz_us] 80-99 Automated erythrocyte mean corpuscular hemoglobin (mass per erythrocyte) 29 pg 25-34 Automated erythrocyte mean corpuscular hemoglobin concentration measurement ( mass/volume) 34 g/dL 32-36 Automated erythrocyte distribution width ratio 11.8 % 10.0-14.5 Automated blood platelet count (count/volume) 211 10*3/uL 130-400 Automated blood platelet mean volume measurement 11.7 [foz_ us] 7.4-10.4 Automated blood neutrophils/100 leukocytes 66 % 42-75 Automated blood lymphocytes/100 leukocytes 27 % 12-44 Blood monocytes/100 leukocytes 7 % 0-12 Automated blood eosinophils/100 leukocytes 0 % 0-10 Automated blood basophils/100 leukocytes 0 % 0-10 Blood neutrophils automated count (number/volume) 5.4 10*3 1.8-7.8 Blood lymphocytes automated count (number/volume) 2.2 10*3 1.0-4.0 Blood monocytes automated count (number/volume) 0.6 10*3 0.0-1.0 Automated eosinophil count 0.0 10*3/uL 0.0-0.3 Automated blood basophil count (count/volume) 0.0 10*3/uL 0.0-0.1 Comprehensive metabolic panel - 09/27/16 04:05 Serum or plasma sodium measurement (moles/volume) 131 mmol/ L 135-145 Serum or plasma potassium measurement (moles/volume) 3.7 mmol/L 3.6-5.0 Serum or plasma chloride measurement (moles/volume) 102 mmol /L 98-107 Carbon dioxide 20 mmol/L 21-32 Serum or plasma anion gap determination (moles/volume) 9 mmol/L 5-14 Serum or plasma urea nitrogen measurement (mass/volume) 7 mg /dL 7-18 Serum or plasma creatinine measurement (mass/volume) 0.70 mg /dL 0.60-1.30 Serum or plasma urea nitrogen/creatinine mass ratio 10 NRG Serum or plasma creatinine measurement with calculation of estimated glomerular filtration rate > NRG Serum or plasma glucose measurement (mass/volume) 83 mg/dL 70-105 Serum or plasma calcium measurement (mass/volume) 8.0 mg/dL 8.5-10.1 Serum or plasma total bilirubin measurement (mass/volume) 0.4 mg/dL 0.1-1.0 Serum or plasma alkaline phosphatase measurement (enzymatic activity/volume) 48 U/L 40-136 Serum or plasma aspartate aminotransferase measurement (enzymatic activity/ volume) 15 U/L 5-34 Serum or plasma alanine aminotransferase measurement (enzymatic activity/volume ) 12 U/L 0-55 Serum or plasma protein measurement (mass/volume) 5.1 g/dL 6.4-8.2 Serum or plasma albumin measurement (mass/volume) 3.3 g/dL 3.2-4.5 Encounters ACCT No. Visit Date/Time Discharge Status Pt. Type Provider Facility Loc./Unit Complaint [id number] 09/26/2016 15:40:00 2015 13:27:00 DIS Inpatient TANIA CORRIGAN MD [facility] 4TH INTRACTABLE ABDOMINAL PAIN [id number] 03/19/2016 20:20:00 2015 00:00:00 DIS Emergency CUAUHTEMOC DO, SONALI Madrigal [facility] ER ABDOMINAL PAIN [id number] 08/20/2015 12:12:00 2015 00:01:00 DIS Outpatient SANCHEZ GROVES MD [facility] LAB DIARRHEA [id number] 08/21/2015 13:32:00 2014 23:59:59 CLS Outpatient TANAI CORRIGAN MD [facility] RAD DVT RIGHT LOWER EXT [id number] 07/24/2015 10:41:00 2014 10:50:00 DIS Inpatient TANIA CORRIGAN MD [facility] SURGICAL COLITIS [id number] 07/22/2015 14:34:00 2014 23:59:59 CLS Outpatient JASMIN MD, CATARINA G [facility] RAD SCREENING [id number] 05/11/2015 06:30:00 2014 19:55:00 DIS Inpatient TANIA CORRIGAN MD [facility] 4TH COLITIS;ANXIETY;INTRACTABLE NAUSEA [id number] 03/27/2015 12:02:00 2014 23:59:59 CLS Outpatient TANIA CORRIGAN MD [facility] RAD HEADACHE POST INJURY TO BACK HEAD AND NECK [id number] 01/21/2015 15:33:00 2014 23:59:59 CLS Outpatient TANIA CORRIGAN MD [facility] RAD ABD/PEL PAIN, ITCHING [id number] 10/17/2014 07:14:00 2013 23:59:59 CLS Outpatient INDRA DUNAWAY MD [facility] LAB PRURITIS FLUSHING NAUSEA VOMITING DIARRHEA [id number] 10/01/2014 12:08:00 2013 23:59:59 CLS Outpatient CATARINA CASTELLANOS MD [facility] LAB PURITIS [id number] 05/14/2014 21:47:00 2013 13:10:00 DIS Outpatient ROGELIO DIEGO DO [facility] SDC CHEST PAIN [id number] 04/24/2014 10:59:00 2013 23:59:59 CLS Outpatient CATARINA CASTELLANOS MD [facility] RAD ROUTINE [id number] 01/22/2014 09:58:00 2013 00:01:00 DIS Outpatient BE GREEN MD [facility] CARD TACHYCARDIA [id number] 03/14/2014 08:41:00 2013 11:17:00 DIS Outpatient BE GREEN MD [facility] REHAB NECK PAIN;MYOFASCIAL MUSCLE PAIN [id number] 03/20/2014 10:05:00 2013 23:59:59 CLS Outpatient BE GREEN MD [facility] RAD NECK PAIN W/ R SHOULDER RADICULOPATHY [id number] 02/21/2014 13:57:00 2013 23:59:59 CLS Outpatient BE GREEN MD [facility] CARD CHEST PAIN [id number] 02/02/2014 13:37:00 2013 23:59:59 CLS Outpatient RJ RODRIGUEZ DO [facility] RAD SOA [id number] 01/31/2014 15:53:00 2013 23:59:59 CLS Outpatient BE GREEN MD [facility] LAB SOB [id number] 03/10/2013 07:52:00 2012 23:59:59 CLS Outpatient BE GREEN MD [facility] RAD ABN MAMMO [id number] 02/24/2013 07:38:00 2012 23:59:59 CLS Outpatient CATARINA CASTELLANOS MD [facility] RAD SCREENING [id number] 08/04/2016 13:03:00 ACT Outpatient CATARINA CASTELLANOS MD [facility] RAD SCREENING [id number] 06/04/2016 07:47:00 ACT Outpatient SANCHEZ GROVES MD [facility] RAD CONSTIPATION [id number] 01/21/2016 08:54:00 TANIA Garza MD [facility] REHAB [id number] 11/19/2015 00:09:00 SANCHEZ Hernandez MD [facility] LAB DIARRHEA [id number] 11/11/2015 13:50:00 ACT Outpatient SANCHEZ GROVES MD [facility] LAB DIARRHEA [id number] 10/14/2015 14:01:00 ACT Outpatient TANIA CORRIGAN MD [facility] LAB ABNORMAL RESULTS THYROID, NONTOXIC THYROID NODULE [id number] 01/16/2015 12:22:00 Document Registration [id number] 01/10/2015 00:00:00 Document Registration [id number] 10/01/2014 12:08:00 Document Registration [id number] 10/01/2014 12:08:00 Document Registration [id number] 04/23/2014 10:00:00 Document Registration [id number] 08/22/2012 09:19:00 Document Registration [id number] 02/29/2012 12:50:00 Document Registration [id number] 01/15/2012 08:06:00 Document Registration [id number] 10/30/2011 07:43:00 Document Registration [id number] 02/01/2011 07:48:00 Document Registration [id number] 10/22/2010 13:59:00 Document Registration [id number] 04/04/2010 10:39:00 Document Registration [id number] 04/04/2010 10:33:00 Document Registration [id number] 10/22/2009 11:04:00 Document Registration [id number] 10/21/2009 08:05:00 Document Registration [id number] 05/14/2009 12:43:00 Document Registration
--- NOTE | 2016-12-21 16:53 | Diagnostic Imaging Report ---
PROCEDURE: CT head without contrast. TECHNIQUE: Multiple contiguous axial images were obtained through the brain without the use of intravenous contrast. INDICATION: Head injury with headache. COMPARISON: Comparison is made to study of 03/27/2015. CT HEAD: Multiple contiguous axial CT images of the head were obtained. FINDINGS: Ventricles and sulci are within normal limits for size. There is no intracranial hemorrhage identified. There is no abnormal mass effect or shift of midline structures. IMPRESSION: Unremarkable CT of the head. Dictated by: Dictated on workstation # [id number]
== END ==
LOC: RAD 16:30
PROVIDERS: ATTEND Nurse Practitioner Family
DX: S09.90XA Unspecified injury of head, initial encounter (principal); R51 Headache; X58.XXXA Exposure to other specified factors, initial encounter; Y99.8 Other external cause status
CPT/HCPCS: 70450

== ENCOUNTER → 2017-08-23 | Outpatient (CLI) | payer OTHER ==
--- NOTE | 2017-08-24 09:23 | Diagnostic Imaging Report ---
Bilateral screening mammogram 2D views with tomosynthesis The current study was also evaluated with a Computer Aided Detection (CAD) system. Indication: Screening. No current complaints stated on the questionnaire. COMPARISON: 08/04/16 FINDINGS: The breasts are composed of scattered fibroglandular densities. No new mass, architectural distortion or suspicious calcification. Allowing for technique and positional differences, no suspicious change is seen. IMPRESSION: No significant change. ACR BI-RADS Category 2: Benign findings. Result letter will be mailed to the patient. Note: At least 10% of breast cancer is not imaged by mammography. Dictated by: Dictated on workstation # [id number]
== END ==
LOC: RAD 10:36
PROVIDERS: ATTEND Obstetrics & Gynecology
DX: Z12.31 Encounter for screening mammogram for malignant neoplasm of breast (principal)
CPT/HCPCS: 77067

== ENCOUNTER → 2018-05-02 | Outpatient (CLI) | payer BC, OTHER ==
--- NOTE | 2018-05-02 09:30 | Diagnostic Imaging Report ---
PROCEDURE: US Thyroid. TECHNIQUE: Multiple real-time grayscale images were obtained of the thyroid in various projections. INDICATION: History of thyroid nodules. FINDINGS: Right lobe of the thyroid measures 4.4 x 1.2 x 1.5 cm and the left lobe measures 4.1 x 1.0 x 1.3 cm. Both lobes are fairly homogeneous. Right lobe does contain two small hypoechoic circumscribed nodules, each less than 1 cm in size. Largest is in the mid aspect measuring 8 mm x 4 mm x 4 mm. No dominant thyroid mass is detected. The left lobe is unremarkable. IMPRESSION: Subcentimeter right lobe thyroid nodules. No dominant thyroid mass is identified. Dictated by: Dictated on workstation # [id number]
== END ==
LOC: RAD 08:44
PROVIDERS: ATTEND Family Medicine
DX: E04.1 Nontoxic single thyroid nodule (principal)
CPT/HCPCS: 76536

== ENCOUNTER → 2018-08-30 | Outpatient (CLI) | payer OTHER ==
--- NOTE | 2018-08-30 13:56 | Diagnostic Imaging Report ---
PROCEDURE: US Thyroid. TECHNIQUE: Multiple real-time grayscale images were obtained of the thyroid in various projections. INDICATION: Thyroid nodules, three month followup. Comparison is made with prior thyroid ultrasound from 05/02/2018. Right lobe of the thyroid measures 4.1 x 1.2 x 1.3 cm and the left lobe measures 3.9 x 1.0 x 1.1 cm. There are two small hypoechoic nodules in the right lobe of the thyroid. Each measure approximately 4-5 mm in size. The left lobe is unremarkable. No dominant thyroid mass is seen. The isthmus is 3 mm in thickness. IMPRESSION: Stable right lobe subcentimeter thyroid nodules when compared with exam from 05/02/2018. No dominant thyroid mass is detected. Dictated by: Dictated on workstation # [id number]
== END ==
LOC: RAD 08:36
PROVIDERS: ATTEND Otolaryngology Otolaryngology/Facial Plastic Surgery
DX: E04.2 Nontoxic multinodular goiter (principal)
CPT/HCPCS: 76536

== ENCOUNTER → 2018-09-12 | Outpatient (CLI) | payer OTHER ==
--- NOTE | 2018-09-12 11:17 | Diagnostic Imaging Report ---
INDICATION: Routine screening. COMPARISON: Comparison is made with prior mammograms from 08/23/2017 and 08/04/2016. TECHNIQUE: 2D and 3D bilateral screening mammography was performed with computer-aided detection (CAD) system. FINDINGS: Scattered fibroglandular densities are identified bilaterally. Circumscribed nodular density in the upper central left breast appears stable. A tiny circumscribed nodule in the upper right breast mid depth is also stable. No spiculated mass or malignant appearing microcalcifications are seen. The axillae are unremarkable. IMPRESSION: No mammographic features suspicious for malignancy are identified. ACR BI-RADS Category 2: Benign findings. Result letter will be mailed to the patient. Note: At least 10% of breast cancer is not imaged by mammography. Dictated by: Dictated on workstation # [id number]
== END ==
LOC: RAD 10:04
PROVIDERS: ATTEND Family Medicine
DX: Z12.31 Encounter for screening mammogram for malignant neoplasm of breast (principal)
CPT/HCPCS: 77067

== ENCOUNTER → 2019-10-18 | Outpatient (CLI) | payer OTHER ==
--- NOTE | 2019-10-19 09:47 | Diagnostic Imaging Report ---
INDICATION: Routine screening. COMPARISON is made with prior mammograms from 09/12/2018 and 08/23/2017. 2-D and 3-D bilateral screening mammography was performed with CAD. Scattered fibroglandular densities are identified bilaterally. Circumscribed nodules in both breasts appear stable. No spiculated mass or malignant appearing microcalcifications are seen. Axillae are unremarkable. IMPRESSION: BI-RADS Category 2. No mammographic features suspicious for malignancy are identified. Dictated by: Dictated on workstation # [id number]
== END ==
LOC: RAD 15:28
PROVIDERS: ATTEND Family Medicine
DX: Z12.31 Encounter for screening mammogram for malignant neoplasm of breast (principal)
CPT/HCPCS: 77067

== ENCOUNTER → 2022-04-27 | Outpatient (CLI) | payer BC, OTHER ==
[~2022-04-27] MED LIST changes: +BETA15CR14 TOP; -BETA15CR37 TOP; -IBUP-2055 PO; +IBUP-2473 PO; -OMEP40CA36 PO; +OMEP40CA6 PO
== END ==
LOC: RAD 15:45
PROVIDERS: ATTEND Nurse Practitioner Family
DX: Z12.31 Encounter for screening mammogram for malignant neoplasm of breast (principal)
CPT/HCPCS: 77063; 77067

== ENCOUNTER → 2023-06-24 | Outpatient (CLI) | payer BC ==
[~2023-06-24] MED LIST changes: +PARO-135 PO; -PARO40TA PO
--- NOTE | 2023-06-25 12:14 | Diagnostic Imaging Report ---
INDICATION: Routine screening. Comparison is made with prior mammogram 04/27/2022 and 01/16/2021. 2-D and 3-D bilateral screening mammography was performed with CAD. Scattered fibroglandular densities are identified bilaterally. Previously noted benign-appearing nodules in both breast appears stable. No new mass or malignant appearing microcalcifications are seen. Axillae are unremarkable. IMPRESSION: No mammographic features suspicious for malignancy are identified. ACR BI-RADS Category 2: Benign findings. Result letter will be mailed to the patient. Note: At least 10% of breast cancer is not imaged by mammography. BI-RADS Category 2 Dictated by: Dictated on workstation # [id number]
== END ==
LOC: RAD 14:55
PROVIDERS: ATTEND Obstetrics & Gynecology
DX: Z12.31 Encounter for screening mammogram for malignant neoplasm of breast (principal)
CPT/HCPCS: 77063; 77067